=== PATIENT | female | born 1985 | race Caucasian/White ===

== ENCOUNTER 2018-01-08 20:03 | Emergency (ER) | payer BC ==
[~2018-01-08] VITALS: Ht 149.9 cm; Wt 55.5 kg
[2018-01-08 22:57] VITALS: BP 136/82
== END 2018-01-08 22:57 | disposition home or self-care (01) ==
LOC: EME 20:03
DX: M79.671 Pain in right foot (principal); G89.29 Other chronic pain; M21.41 Flat foot [pes planus] (acquired), right foot
CPT/HCPCS: 73610; 73630; 99281; 99283

== ENCOUNTER 2018-01-27 07:43 | Emergency (ER) | payer BC ==
[~2018-01-27] VITALS: Ht 149.9 cm; Wt 55.2 kg
[2018-01-27] MEDS ORDERED: NAPROSYN500 MG PO (08:14)
[2018-01-27 08:37] VITALS: BP 122/80
== END 2018-01-27 08:37 | disposition home or self-care (01) ==
LOC: EME 07:43
DX: M25.531 Pain in right wrist (principal); M79.7 Fibromyalgia; M41.9 Scoliosis, unspecified; Q85.00 Neurofibromatosis, unspecified; M19.90 Unspecified osteoarthritis, unspecified site
CPT/HCPCS: 73110; 99281; 99284